=== PATIENT | female | born 1935 | race Caucasian/White ===

== ENCOUNTER 2021-01-21 12:51 | Emergency (ER) | payer MEDICARE ==
[~2021-01-21] VITALS: Ht 154.9 cm; Wt 43.1 kg
--- NOTE | 2021-01-21 12:54 | NUR ---
PT IS IN ROOM #1B. DR GUTIERREZ EVALUATED THE PT.
[2021-01-21] MEDS ORDERED: IV NORMAL SALINE 500 ML BAG IV ONE (13:00)
[2021-01-21] MEDS ORDERED: IPRATROPIUM BROMIDE 0.5 MG/2.5 ML NEBU NEB ONE (13:00)
[2021-01-21] MEDS ORDERED: ALBUTEROL SULFATE 2.5 MG/3 ML NEBU NEB ONE (13:00)
[2021-01-21] MEDS ORDERED: ALBUTEROL SULFATE 2.5 MG/3 ML NEBU ONE (13:25)
[2021-01-21] MEDS ORDERED: IPRATROPIUM BROMIDE 0.5 MG/2.5 ML NEBU ONE (13:26)
[2021-01-21 13:29] LABS: ABG BASE EXCESS -1.7 mmol/L; ABG HCO3 21.7 mmol/L; ABG PCO2 32.6 mmHg (35.0-45.0); ABG PH 7.441 (7.350-7.450); ABG SITE RIGHT RADIAL; ABG TOTAL HEMOGLOBIN 12.4 G/dL (12.0-16.0); COHb 1.5 % (0.5-1.5); MetHb 0.3 % (0.0-1.5); O2Hb 95.7 % (94.0-97.0); VENT MODE Nasal Cannula
[2021-01-21 13:47] LABS: CREATININE 0.8 mg/dL (0.6-1.3); POTASSIUM 3.4 mmol/L (3.5-5.1)
[2021-01-21 14:04] LABS: BILIRUBIN,DIRECT 0.4 mg/dL (0.0-0.2); BILIRUBIN,TOTAL 1.8 mg/dL (0.2-1.0); TOTAL PROTEIN, SERUM 6.6 g/dL (6.4-8.2)
[2021-01-21 14:11] LABS: HEMATOCRIT 36.6 % (31.2-41.9); MEAN CORPUSCULAR HEMOGLOBIN 32.4 uug (24.7-32.8); MEAN CORPUSCULAR VOLUME 94.5 fL (75.5-95.3); PLATELET COUNT (AUTO) 311 K/uL (179-408)
--- NOTE | 2021-01-21 14:41 | NUR ---
PT WAS D/C'd TO HOME AFTER ER MD EVALUATION. D/C INSTRUCTIONS GIVEN TO THE PT ,TO HER DOUGHTER AND TO PT's CAREGIVER. PT IS NOT SHOWING ANY S/S OF DISTRESS AT THE TIME OF DISCHARGE. NO SOB, NO N/V, PT DENIES PAIN.
[2021-01-21 14:43] VITALS: BP 131/72
== END 2021-01-21 14:44 | disposition home or self-care (01) ==
LOC: ER 12:51
DX: J44.1 Chronic obstructive pulmonary disease with (acute) exacerbation (principal); T17.928A Food in respiratory tract, part unspecified causing other injury, initial encounter; X58.XXXA Exposure to other specified factors, initial encounter; Y92.89 Other specified places as the place of occurrence of the external cause; R94.31 Abnormal electrocardiogram [ECG] [EKG]; Z99.81 Dependence on supplemental oxygen
CPT/HCPCS: 36415; 36600; 71045; 85025; 87040; 93005; 94640; A4663; J3590; J7030